=== PATIENT | female | born 1980 | race Caucasian/White ===

== ENCOUNTER 2017-12-14 09:46 | Outpatient (CLI) | payer OTHER | END 2017-12-14 17:19 | disposition home or self-care (01) | LOC: OBT 09:46 → L-D 09:48 → OBT 17:19 | DX: O26.893 Other specified pregnancy related conditions, third trimester (principal); O09.523 Supervision of elderly multigravida, third trimester; R10.2 Pelvic and perineal pain; Z3A.29 29 weeks gestation of pregnancy | CPT/HCPCS: 76818; 85460; 86850; 86900; 86901 ==

== ENCOUNTER 2017-12-28 08:59 | Outpatient (CLI) | payer OTHER ==
[2017-12-28 10:13] LABS: ADD UMIC NO; UR ASCORBIC ACID NEGATIVE (NEGATIVE); UR BILIRUBIN (Dip) NEGATIVE (NEGATIVE); UR BLOOD (Dip) NEGATIVE (NEGATIVE); UR CLARITY CLEAR (CLEAR); UR COLOR YELLOW (YELLOW); UR GLUCOSE (Dip) NEGATIVE (NEGATIVE); UR KETONES (Dip) NEGATIVE (NEGATIVE); UR LEUKOCYTE ESTERASE (Dip) NEGATIVE Leu/ul (NEGATIVE); UR NITRITE (Dip) NEGATIVE (NEGATIVE); UR SPECIFIC GRAVITY (Dip) 1.016 (1.003-1.030); UR TOTAL PROTEIN (Dip) NEGATIVE (NEGATIVE); UR UROBILINOGEN (Dip) NEGATIVE (NEGATIVE)
== END 2017-12-28 11:05 | disposition home or self-care (01) ==
LOC: OBT 08:59 → L-D 08:59 → OBT 11:05
DX: O62.9 Abnormality of forces of labor, unspecified (principal); Z3A.31 31 weeks gestation of pregnancy; O09.523 Supervision of elderly multigravida, third trimester
CPT/HCPCS: 76817; 76818; 81003

== ENCOUNTER 2018-02-11 01:30 | Inpatient (IN) | payer OTHER ==
[2018-02-11] MEDS: LACTATED RINGER'S 1,000 ML IV ×3 (01:14→12:55)
[2018-02-11 03:06] LABS: ADD MAN DIFF? NO
[2018-02-11 03:19] LABS: BASOPHIL # 0.1 10^3/ul (0.0-0.1); BASOPHILS % 0.5 % (0.0-2.0); EOSINOPHILS # 0.1 10^3/ul (0.0-0.5); EOSINOPHILS % 1.1 % (0.0-7.0); HEMATOCRIT 27.9 % (37.0-47.0); HEMOGLOBIN 9.5 g/dl (12.0-16.0); LYMPHOCYTES # 1.8 10^3/ul (0.8-2.9); MEAN CORPUSCULAR HEMOGLOBIN 30.2 pg (29.0-33.0); MEAN CORPUSCULAR HGB CONC 34.1 g/dl (32.0-37.0); MEAN CORPUSCULAR VOLUME 88.6 fl (82.0-101.0); MEAN PLATELET VOLUME 11.9 fl (7.4-10.4); MONOCYTE # 0.5 10^3/ul (0.3-0.9); MONOCYTES % 5.4 % (0.0-11.0); NEUTROPHIL # 7.3 10^3/ul (1.6-7.5); PLATELET COUNT 195 10^3/UL (140-415); RED BLOOD COUNT 3.15 10^6/ul (4.20-5.40)
[2018-02-11 03:19] LABS: WHITE BLOOD COUNT 9.9 10^3/ul (4.8-10.8)
[2018-02-11 03:22] LABS: INR 0.84; PROTIME 11.6 Sec (11.9-14.9); PT RATIO 0.9
[2018-02-11 03:23] LABS: PARTIAL THROMBOPLASTIN TIME 26.4 Sec (25.0-35.0)
[2018-02-11] MEDS ORDERED: LACTATED RINGER'S 500 ML IV (03:36)
[2018-02-11 04:18] LABS: ADD UMIC YES; UR ASCORBIC ACID NEGATIVE (NEGATIVE); UR BILIRUBIN (Dip) NEGATIVE (NEGATIVE); UR BLOOD (Dip) NEGATIVE (NEGATIVE); UR CLARITY CLEAR (CLEAR); UR COLOR YELLOW (YELLOW); UR GLUCOSE (Dip) 1+ mg/dL (NEGATIVE); UR KETONES (Dip) NEGATIVE (NEGATIVE); UR LEUKOCYTE ESTERASE (Dip) NEGATIVE Leu/ul (NEGATIVE); UR NITRITE (Dip) NEGATIVE (NEGATIVE); UR RBC 2 /HPF (0-5); UR SPECIFIC GRAVITY (Dip) 1.023 (1.003-1.030); UR TOTAL PROTEIN (Dip) 3+ mg/dl (NEGATIVE); UR UROBILINOGEN (Dip) NEGATIVE (NEGATIVE); UR WBC 2 /HPF (0-5)
[2018-02-11] MEDS ORDERED: CARBOPROST 250 MCG INJ IM ×2 (04:30→19:00)
[2018-02-11] MEDS ORDERED: OXYTOCIN 30 UNITS/LR 500 ML IV ×4 (04:30→19:00)
[2018-02-11] MEDS ORDERED: MISOPROSTOL 200 MCG TAB PR ×2 (04:30→19:00)
[2018-02-11] MEDS ORDERED: METHYLERGONOVINE 0.2 MG INJ IM ×2 (04:30→19:00)
[2018-02-11] MEDS: MAGNESIUM SULFATE 4 GM/100 ML 100 ML IV (04:59)
[2018-02-11] MEDS: MAGNESIUM SULFATE 20 GM/500 ML 500 ML IV ×2 (05:34→15:23)
[2018-02-11 06:00] LABS: ALANINE AMINOTRANSFERASE 18 IU/L (13-69); ALBUMIN 3.1 g/dl (3.3-4.9); ALBUMIN/GLOBULIN RATIO 0.96; ALKALINE PHOSPHATASE 140 IU/L (42-121); ANION GAP 16 (8-16); ASPARTATE AMINO TRANSFERASE 26 IU/L (15-46); BILIRUBIN,INDIRECT 0.1 mg/dl (0-1.1); BILIRUBIN,TOTAL 0.1 mg/dl (0.2-1.3); BLOOD UREA NITROGEN 17 mg/dl (7-20); CALCIUM 9.2 mg/dl (8.4-10.2); CARBON DIOXIDE 20 mmol/L (21-31); CHLORIDE 107 mmol/L (97-110); CREATININE 0.77 mg/dl (0.44-1.00); GLUCOSE 162 mg/dl (70-220); POTASSIUM 4.1 mmol/L (3.5-5.1); SODIUM 139 mmol/L (135-144); TOTAL PROTEIN 6.3 g/dl (6.1-8.1); URIC ACID 6.5 mg/dl (3.1-7.9)
[2018-02-11 06:28] LABS: HEPATITIS B SURFACE ANTIGEN NEGATIVE (NEGATIVE)
[2018-02-11 07:04] LABS: MAGNESIUM 3.2 mg/dl (1.7-2.5)
[2018-02-11 13:06] LABS: MAGNESIUM 4.5 mg/dl (1.7-2.5)
[2018-02-11] MEDS ORDERED: morphine SULFATE/PF (10 MG/10 ML) INJ (13:22)
[2018-02-11] MEDS ORDERED: EPHEDrine SULFATE 50 MG/5 ML SYG (13:22)
[2018-02-11] MEDS ORDERED: METOCLOPRAMIDE 10 MG INJ (13:23)
[2018-02-11] MEDS ORDERED: OXYTOCIN 10 UNIT INJ (13:23)
[2018-02-11] MEDS ORDERED: ONDANSETRON 4 MG INJ (13:23)
[2018-02-11] MEDS ORDERED: MIDAZOLAM 1 MG/ML 2 ML INJ (14:27)
[2018-02-11] MEDS: OXYTOCIN 30 UNITS/LR 500 ML IV ×2 (15:17→17:45)
[2018-02-11] MEDS: CEFAZOLIN 2 GM/50 ML (PMX) 50 ML IV (15:23)
[2018-02-11] MEDS ORDERED: NALOXONE (0.4 MG/ML) INJ IV (15:30)
[2018-02-11] MEDS: morphine SULFATE/PF (10 MG/10 ML) INJ SPINAL (15:30)
[2018-02-11] MEDS ORDERED: DIPHENHYDRAMINE 50 MG INJ IV ×2 (15:30→19:00)
[2018-02-11] MEDS ORDERED: EPHEDrine SULFATE 50 MG/5 ML SYG IV (15:30)
[2018-02-11] MEDS ORDERED: morphine 2 MG INJ IV (15:30)
[2018-02-11] MEDS: morphine 2 MG INJ IV (17:04)
[2018-02-11] MEDS: ONDANSETRON 4 MG INJ IV (17:04)
[2018-02-11] MEDS ORDERED: ZOLPIDEM 5 MG TAB PO (19:00)
[2018-02-11] MEDS ORDERED: ONDANSETRON 4 MG INJ IV (19:00)
[2018-02-11] MEDS ORDERED: OXYCODONE/ACETAMINOPHEN (5/325) TAB PO (19:00)
[2018-02-11 19:31] LABS: RAPID PLASMA REAGIN NONREACTIVE (NR)
[2018-02-11 20:25] LABS: MAGNESIUM 4.9 mg/dl (1.7-2.5)
[2018-02-11] MEDS: SENNA/DOCUSATE NA (8.6MG/50MG) TAB PO (21:40)
[2018-02-12 01:08] LABS: MAGNESIUM 5.3 mg/dl (1.7-2.5)
[2018-02-12] MEDS: MAGNESIUM SULFATE 20 GM/500 ML 500 ML IV ×2 (01:52→12:50)
[2018-02-12] MEDS: LACTATED RINGER'S 1,000 ML IV ×3 (02:45→16:04)
[2018-02-12] MEDS: SENNA/DOCUSATE NA (8.6MG/50MG) TAB PO ×2 (09:18→20:47)
[2018-02-12] MEDS: KETOROLAC 30 MG INJ IV ×2 (09:19→15:18)
[2018-02-12 09:59] LABS: ADD MAN DIFF? NO
[2018-02-12 10:02] LABS: WHITE BLOOD COUNT 10.8 10^3/ul (4.8-10.8)
[2018-02-12 10:02] LABS: BASOPHILS % 0.4 % (0.0-2.0); EOSINOPHILS # 0.1 10^3/ul (0.0-0.5); EOSINOPHILS % 0.5 % (0.0-7.0); HEMATOCRIT 28.1 % (37.0-47.0); HEMOGLOBIN 9.3 g/dl (12.0-16.0); LYMPHOCYTES # 1.2 10^3/ul (0.8-2.9); MEAN CORPUSCULAR HEMOGLOBIN 29.8 pg (29.0-33.0); MEAN CORPUSCULAR HGB CONC 33.1 g/dl (32.0-37.0); MEAN CORPUSCULAR VOLUME 90.1 fl (82.0-101.0); MEAN PLATELET VOLUME 11.3 fl (7.4-10.4); MONOCYTE # 0.6 10^3/ul (0.3-0.9); MONOCYTES % 5.1 % (0.0-11.0); NEUTROPHIL # 8.9 10^3/ul (1.6-7.5); NEUTROPHILS % 82.4 % (39.0-77.0); PLATELET COUNT 183 10^3/UL (140-415); RED BLOOD COUNT 3.12 10^6/ul (4.20-5.40); RED CELL DISTRIBUTION WIDTH 13.6 % (11.5-14.5)
[2018-02-12 10:36] LABS: MAGNESIUM 5.2 mg/dl (1.7-2.5)
[2018-02-12 12:49] LABS: MAGNESIUM 5.8 mg/dl (1.7-2.5)
[2018-02-12] MEDS: IBUPROFEN 600 MG TAB PO ×2 (18:00→23:54)
[2018-02-12] MEDS: OXYCODONE/ACETAMINOPHEN (5/325) TAB PO (22:19)
[2018-02-12] MEDS: LANOLIN 7 GM TUBE TOP (22:20)
[2018-02-13] MEDS: IBUPROFEN 600 MG TAB PO ×4 (05:38→23:37)
[2018-02-13] MEDS: SENNA/DOCUSATE NA (8.6MG/50MG) TAB PO ×2 (10:03→20:39)
[2018-02-13] MEDS: OXYCODONE/ACETAMINOPHEN (5/325) TAB PO ×2 (13:17→20:40)
[2018-02-14] MEDS: IBUPROFEN 600 MG TAB PO ×2 (05:53→11:51)
[2018-02-14] MEDS: DIPHTH/TET/ACEL PERTUSS (ADULT) 0.5 ML VIAL IM* (09:38)
[2018-02-14] MEDS: SENNA/DOCUSATE NA (8.6MG/50MG) TAB PO (09:38)
[2018-02-14] MEDS: OXYCODONE/ACETAMINOPHEN (5/325) TAB PO (11:34)
== END 2018-02-14 15:09 | disposition home or self-care (01) | DRG 766 ==
LOC: OBT 01:30 → L-D 01:30 → OBT 04:22 → L-D 04:22 → PP1 18:27
PROVIDERS: Obstetrics & Gynecology
PROC: 10D00Z1 Extraction of Products of Conception, Low, Open Approach (ICD-10-PCS; principal; 2018-02-11 13:30)
PROC: 0UT70ZZ Resection of Bilateral Fallopian Tubes, Open Approach (ICD-10-PCS; 2018-02-11 13:30)
DX: O34.211 Maternal care for low transverse scar from previous cesarean delivery (principal); O24.429 Gestational diabetes mellitus in childbirth, unspecified control; O13.4 Gestational [pregnancy-induced] hypertension without significant proteinuria, complicating childbirth; O36.63X0 Maternal care for excessive fetal growth, third trimester, not applicable or unspecified; Z3A.38 38 weeks gestation of pregnancy; Z37.0 Single live birth; Z30.2 Encounter for sterilization
CPT/HCPCS: 36415; 71045; 80053; 81001; 82962; 83735; 84560; 85025; 85610; 85730; 86592; 86850; 86900; 86901; 87086; 87340; 88302; 93005; 96360; 96361; 99464

== ENCOUNTER 2018-06-26 18:17 | Emergency (ER) | payer OTHER ==
[2018-06-26] MEDS: DEXAMETHASONE 10 MG/ML 1 ML INJ IM (20:40)
[2018-06-26] MEDS: IPRATROPIUM (NEB) 0.5 MG/2.5 ML AMP HHN (20:47)
[2018-06-26] MEDS: ALBUTEROL 0.083% (NEB) 2.5 MG/3 ML AMP HHN (20:47)
== END 2018-06-26 21:39 | disposition home or self-care (01) ==
LOC: FTE 18:17
DX: J45.901 Unspecified asthma with (acute) exacerbation (principal)
CPT/HCPCS: 94664; 96372; 99284-25